=== PATIENT | male | born 2005 ===

== ENCOUNTER 2023-08-16 13:35 | Emergency (ER) | payer MEDICAID, SELFPAY ==
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
[2023-08-16 13:38] VITALS: BP 119/78; PULSE 74; RESP 19; TEMP 36.6; O2SAT 98; BMI 27.1
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
[2023-08-16 14:16] LABS: MANUAL DIFF FLAG NO
[2023-08-16 14:22] LABS: Basophils Percent Auto 0.4 % (0-2); Eosinophils Absolute Auto 0.2 X10*3/uL (0.0-0.4); Eosinophils Percent Auto 1.8 % (0-4); Hematocrit 43.3 % (42.0-52.0); Hemoglobin 14.6 g/dl (14.0-18.0); Imm Gran Abs Auto 0.03 X10*3/uL (0.00-0.03); Imm Gran Pct Auto 0.3 % (0.0-0.4); Lymphocytes Absolute Auto 1.8 X10*3/uL (1.2-4.9); Mean Corpuscular HGB Conc 33.7 g/dl (31.0-36.0); Mean Corpuscular Hemoglobin 29.1 pg (27.0-33.0); Mean Corpuscular Volume 86.4 fL (80.0-98.0); Mean Platelet Volume 10.4 fL (9.4-12.4); Monocytes Absolute Auto 0.6 X10*3/uL (0.1-1.2); Monocytes Percent Auto 7.1 % (2-11); Neutrophils Absolute Auto 6.3 x10*3/uL (2.0-8.3); Neutrophils Percent Auto 70.4 % (45-73); Platelet Count 247 X10*3/uL (160-400); Red Blood Count 5.01 X10*6/uL (4.60-5.80); Red Cell Distribution Width 12.5 % (11.0-16.0); White Blood Count 8.9 X10*3/uL (4.8-10.8)
--- NOTE | 2023-08-16 14:35 | MHC.EDTECH ---
pt's head lac was cleaned with orders from dr. kelley. pt tolerated well.
[2023-08-16 14:45] VITALS: BP 115/77; PULSE 74; RESP 14; TEMP 36.4; O2SAT 98
[2023-08-16] MEDS: Diphth,Pertus(ACell),Tet Adult 0.5 ML SYRINGE IM (14:46)
[2023-08-16] MEDS: Lidocaine HCl 1 % MPF 5 ML VIAL SUBCUT (14:47)
[2023-08-16 14:57] VITALS: BP 123/70; PULSE 74; RESP 16; TEMP 36.4; O2SAT 99
[2023-08-16 14:59] LABS: Alanine Aminotransferase 26 U/L (0-40); Albumin Level 4.4 g/dL (3.5-5.0); Alkaline Phosphatase 63 U/L (39-117); Anion Gap 14 (12-20); Aspartate Amino Transferase 23 U/L (5-37); Bilirubin Total 0.6 mg/dL (0.0-1.0); Blood Urea Nitrogen 9 mg/dL (9-16); Calcium 9.3 mg/dL (8.4-10.2); Carbon Dioxide 21 mmol/L (22-29); Chloride 108 mmol/L (96-108); Estimated Glomerular Filt Rate > 60; Glucose Random 81 mg/dL (60-115); Potassium 4.4 mmol/L (3.3-5.1); Sodium 139 mmol/L (135-145); Total Protein 7.8 g/dL (6.5-8.0)
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
--- NOTE | 2023-08-16 15:41 | MHC.EDTECH ---
assisted DR with the loree, the pt was cleaned and stated they have no further complaints besides pain meds for headache which was communicated to rn
[2023-08-16] MEDS: Ibuprofen 800 MG TABLET PO (15:56)
--- NOTE | 2023-08-16 16:00 | PC.NURSE ---
Pain meds given per MAR, awaiting scan results. Family at bed side, and reassured about scans. Pt calm/cooperative, AOx4.
[2023-08-16 16:22] VITALS: BP 130/67; PULSE 75; RESP 16; TEMP 36.4; O2SAT 99
[2023-08-16 16:30] VITALS: BP 130/67; PULSE 75; RESP 16; TEMP 36.4; O2SAT 99
== END 2023-08-16 16:43 | disposition home or self-care (01) ==
PROVIDERS: Physician Assistant; Emergency Provider Emergency Medicine; PCP Internal Medicine
DX: S01.01XA Laceration without foreign body of scalp, initial encounter (principal); S00.01XA Abrasion of scalp, initial encounter; R51.9 Headache, unspecified; M54.2 Cervicalgia; V89.2XXA Person injured in unspecified motor-vehicle accident, traffic, initial encounter; Y93.9 Activity, unspecified; Y92.828 Other wilderness area as the place of occurrence of the external cause; Y99.8 Other external cause status; Z79.899 Other long term (current) drug therapy; Z23 Encounter for immunization
CPT/HCPCS: 12002; 36415; 70450; 72125; 80053; 85025; 90471; 90715; 99284